=== PATIENT | female | born 1960 | race Hispanic/Latino ===

== ENCOUNTER 2022-07-21 11:03 | Observation (INO) | payer SELFPAY ==
[2022-07-21] VITALS (10 sets, daily range): BP systolic 119–143; BP diastolic 57–79; PULSE 55–70; RESP 14–18; TEMP 36.2–36.5; O2SAT 97–99; BMI 30.9
--- NOTE | 2022-07-21 | ECHO_ITS ---
Patient Info Name: Bela Perez Age: 62 years : 1960 Gender: Female Ht: 62 in Wt: 174 lbs BSA: 1.89 m2 HR: 88 bpm BP: 120 / 66 mmHg Heart Rhythm: Sinus Rhythm Technical Quality: Fair Exam Date: 07/21/2022 2:29 PM Exam Location: [facility] Pulmonary Exam Room: Patient Status: Outpatient Admit Date: 07/21/2022 Staff Ordering Physician: Alley Ag NP Criminal Investigative Agent: Junie Perry RDCS Attending Provider: Tim Macias MD Referring Physician: Kimberli GOLDSTEIN; Exam Type: CA echo doppler color flow Study Info Indications - chest pain Complete two-dimensional, color flow and Doppler transthoracic echocardiogram is performed. Summary 1. Complete two-dimensional, color flow and Doppler transthoracic echocardiogram is performed. 2. Normal left ventricular size, thickness and systolic function. 3. No regional wall motion abnormality. 4. Grade 1 diastolic noncompliance. 5. Trivial tricuspid regurgitation. Left Ventricle Left ventricular chamber dimension is normal. Left ventricular systolic function is normal, estimated at 60-65%. The left ventricular diastolic function is grade I diastolic dysfunction. Right Ventricle Right ventricular chamber dimension is normal. Left Atria Left atrial chamber dimension is normal. Right Atria Right atrial chamber dimension is normal. Aortic Valve The aortic valve is normal. Pulmonic Valve The pulmonic valve is normal. Mitral Valve The mitral valve has normal leaflets. Tricuspid Valve The tricuspid valve leaflets are normal. There is trace tricuspid valve regurgitation. Pericardium/Pleural The pericardium appears normal. Aorta The aortic root size at the sinus of Valsalva is normal. Left Ventricular Outflow Tract Name Value Normal LVOT 2D LVOT Diameter 2.0 cm LVOT Doppler LVOT Peak Gradient 5 mmHg LVOT Mean Gradient 3 mmHg LVOT VTI 26 cm LVOT VTI/AV VTI Ratio 0.8 LVOT Stroke Volume 77 ml LVOT CO 13.4 l/min LVOT CI 7.1 l/min/m2 Pulmonic Valve Name Value Normal PV Doppler PV Peak Gradient 24 mmHg Mitral Valve Name Value Normal MV Doppler MV Decel [place] 257 cm/s2 MV PHT 70 ms MV Area (PHT) 3.1 cm2 4.0-5.0 MV Diastolic Function
--- NOTE | ~2022-07-21 | XR_ITS ---
EXAMINATION: XR chest 1V portable 07/21/2022 12:32 INDICATION: Chest pain PROCEDURE: AP portable chest COMPARISON: No prior studies for comparison. FINDINGS: The lungs are clear. The cardiomediastinal silhouette is within normal limits. There are no pleural effusions. There is no pneumothorax suspected. IMPRESSION: 1: NO ACUTE CARDIOPULMONARY DISEASE. Reviewed, dictated and finalized at location A.
--- NOTE | 2022-07-21 11:15 | ECG_ITS ---
Measurements Intervals [place] Rate: 68 P: 44 MI: 162 QRS: 29 QRSD: 90 T: 60 QT: 386 QTc: 411 Interpretive Statements SINUS RHYTHM PREVIOUS ANTERIOR SEPTAL INFARCTION ABNORMAL ECG NO PRIOR ECG AVAILABLE FOR COMPARISON NO PREVIOUS ECG AVAILABLE FOR COMPARISON Electronically Signed On 07-21-2022 15:35:43 CDT by Juan Smith M.D.
--- NOTE | 2022-07-21 11:28 | ED.CHESTPAIN ---
HPI - Chest Pain General Chief Complaint: Chest Pain Stated Complaint: chest pain Time Seen by Provider: 07/21/22 11:26 History of Present Illness HPI narrative: Patient Korean-speaking, states last night around 5pm started having pain to chest radiating down left arm, never had symptoms like this in the past, with some nausea and dyspnea. Went to work and felt worse today so called EMS. Related Data Home Medications Medication Instructions Recorded Confirmed No Home Medications 07/21/22 07/21/22 Allergies Allergy/AdvReac Type Severity Reaction Status Date / Time No Known Allergies Allergy Verified 07/21/22 11:27 Review of Systems Review of Systems: CONST: No fever. HEENT: No sore throat C/V: chest pain RESP: difficulty breathing GI: Reports nausea : No dysuria. M/S: Left arm pain SKIN: No rash. NEURO: Headache PSYCH: [No depression] COUNTS INCLUDE 234 BEDS AT THE [facility] Past Medical History Medical History (Updated 07/21/22 @ 19:11 by Brandi Wright MD) Chest pain H/O tinnitus Pre-diabetes Surgical History Surgical History (Updated 07/21/22 @ 13:40 by Alley Ag NP) Hx of cholecystectomy Family History Family History (Updated 07/21/22 @ 13:45 by Alley Ag NP) Mother Diabetes mellitus Father Heart disease Social History Social History (Updated 07/21/22 @ 15:44 by Alley Ag NP) Social History: She is and has one child. She drinks occasional alcohol. 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 Code status full code Smoking status: Never smoker Alcohol intake: never Substance use: never Lack of Transportation: No Lack of Food: Never True Current Housing: I Have Housing Concerned About Future Housing: No Difficulty Paying Gas/Electric Bills: No Difficulty Paying for Meds: No Currently Unemployed: No Education: Don't Know Difficulty w/ Childcare or Family Care: No Spiritual care concerns: No Exam Narrative: EXAMINATION OF ORGAN SYSTEMS/BODY AREAS: Constitutional: Vital signs per nursing GENERAL:[No acute distress, non-toxic appearing.] HEAD: Normal with no signs of head trauma. EYES: EOMI, conjunctiva normal ENT: Hearing grossly intact LUNGS: Nonlabored breathing. HEART: [Regular rate and rhythm] ABD: [Soft], [nontender to palpation] EXT: Normal range of motion SKIN: [No rashes or lesions.] NEURO: [Alert and oriented x 3. No gross focal sensory or strength deficits.] PSYCH: Normal affect Course Vital Signs Vital signs: Vital Signs Temperature 97.6 F 07/21/22 11:05 Pulse Rate 70 07/21/22 11:05 Respiratory Rate 18 07/21/22 11:05 Blood Pressure 133/79 07/21/22 11:05 Pulse Oximetry 97 07/21/22 11:05 Oxygen Delivery Room Air 07/21/22 11:05 Temperature 97.1 F L 07/21/22 16:00 Pulse Rate 61 07/21/22 18:00 Respiratory Rate 14 07/21/22 16:00 Blood Pressure 119/57 L 07/21/22 16:00 Pulse Oximetry 98 07/21/22 16:00 Oxygen Delivery Room Air 07/21/22 15:00 MDM - Chest Pain MDM Narrative Medical decision making narrative: ED COURSE AND MEDICAL DECISION MAKIN-year-old female presenting with chest pain. EKG done in triage negative for acute ischemic changes. Cardiac workup is initiated. EKG: Performed in triage and interpreted by me. Normal sinus rhythm. Rate 68. Normal axis. [place] normal. QRS duration normal. QTc normal. Q waves and ST elevations in V1 to 3 concerning for possible ischemia. Discussed with interventional cardiology who did not feel this merited quality assurance/r&d lab technician emergently at this time, felt we could just trend troponins. CXR reviewed by myself, did not note any obvious consolidation, pneumothorax, mediastinal widening. Doubt dissection without any mediastinal widening. Labs within acceptable limits. I do not have any prior EKGs to compare her EKGs to, and given her EKG changes I do feel she should be admitted for cardiology work-up and patient agreeable with this plan.
[2022-07-21 11:31] LABS: Basophils Percent Auto 0.8 % (0.2-1.2); Eosinophils Absolute Auto 0.2 K/mm3 (0-0.3); Eosinophils Percent Auto 3.3 % (0-4.4); Hematocrit 34.7 % (37.0-47.0); Hemoglobin 11.1 g/dL (12.0-15.0); Immature Granulocyte Absolute 0.01 K/mm3 (0.00-0.031); Immature Granulocyte Percent A 0.2 % (0-0.5); Lymphocytes Absolute Auto 2.09 K/mm3 (0.9-3.2); Lymphocytes Percent Auto 40.4 % (18.3-44.2); Mean Corpuscular Hemoglobin 27.3 pg (26-34); Mean Corpuscular Volume 85.5 fl (80-100); Mean Platelet Volume 11.1 fl (7.4-10.4); Monocytes Absolute Auto 0.4 K/mm3 (0.1-0.6); Monocytes Percent Auto 8.5 % (2.6-8.5); Neutrophils Absolute Auto 2.4 K/mm3 (1.3-6.7); Neutrophils Percent Auto 46.8 % (45.5-73.1); Platelet Count Result 268 k/mm3 (150-375); Red Blood Count 4.06 M/mm3 (4.2-5.4); Red Cell Distribution Width 13.6 % (11.5-14.5); White Blood Count 5.2 K/mm3 (4.5-10.0)
--- NOTE | 2022-07-21 11:34 | PC.NURSE ---
11:26 Dr Smith contacted 11:[address] Wright to call [facility] 11:31 [facility] 11:31 Mack 11.34 [facility]
[2022-07-21] MEDS: SODIUM CHLORIDE 0.9% IV 1,000 ML 999 ML (11:39)
[2022-07-21] MEDS: TICAGRELOR 90 MG TABLET 180 MG PO (11:39)
[2022-07-21 11:40] LABS: Alanine Aminotransferase 37 U/L (6-35); Albumin Level 4.2 g/dL (3.5-5.1); Alkaline Phosphatase 85 U/L (38-126); Anion Gap 5 mmol/L (8-16); Aspartate Amino Transferase 32 U/L (14-36); Bilirubin,Total 0.5 mg/dL (0.2-1.3); Blood Urea Nitrogen 15 mg/dL (7-17); Calcium 8.4 mg/dL (8.4-10.2); Carbon Dioxide 28 mmol/L (22-30); Chloride 101 mmol/L (98-107); Estimated Glomerular Filt Rate > 60; Glucose 219 mg/dL (65-110); Lipase 126 U/L (23-300); Potassium 3.7 mmol/L (3.4-5.0); Sodium 134 mmol/L (137-145)
--- NOTE | 2022-07-21 11:42 | PC.NURSE ---
Dr. Go in room with [facility] team using stratus to communicate with patient.
[2022-07-21 11:45] LABS: INR 1.1
[2022-07-21 11:46] LABS: Partial Thromboplastin Time 33.3 SECONDS (22.3-36.8)
[2022-07-21 11:52] LABS: Troponin I < 0.012 ng/mL (0.000-0.034)
--- NOTE | 2022-07-21 13:38 | PM.IMHP ---
H&P: HPI History of Present Illness Date/Time: 07/21/22 13:39 Chief Complaint: Chest pain Narrative: This is a 62-year-old female patient who has no prior cardiac history. The only medical problem is that she was prediabetic. The patient is Maltese-speaking and her daughters at the bedside answering questions for her. The patient does speak very little Lithuanian. The patient has started having chest pain last night around 5:00 a.m. that was radiating to her left arm and never had any symptoms like this before. Today she was at work and had a severe headache as well as the left-sided chest pain that went into her neck and down her left arm. Patient was given IV Tylenol and she felt much better. Her H&H is 11.1 and 34.7. Sodium is 134. Glucose is 219 but the patient was not NPO. When I saw the patient her chest pain was relieved. Her headache was relieved. Her 1st troponin was nonreactive. Lipase is normal. Chest x-ray shows no acute cardiopulmonary disease. The patient is being admitted to observation status on the date of service of 07/21/2022. Review of Systems Review of Systems: All systems reviewed & are unremarkable except as noted in HPI and below Constitutional: Constitutional: Reports as per HPI and Reports no additional constitutional complaints Eyes: Eyes: Reports as per HPI and Reports no additional eye complaints ENT: Reports system reviewed and no additional complaints, except as documented and Reports Normal hearing present Cardiovascular: Cardiovascular: Reports no additional cardiovascular complaints Respiratory: Respiratory: Reports no additional respiratory complaints and Reports no additional respiratory complaints Gastrointestinal: Gastrointestinal: Reports as per HPI and Reports no additional gastrointestinal complaints Musculoskeletal: Musculoskeletal: Reports no additional musculoskeletal complaints Integumentary/Breasts: Skin/Breast: Reports system reviewed and no additional complaints, except as docu and Reports as per HPI Neurologic: Reports system reviewed and no additional complaints, except as documented, Reports as per HPI and Reports Normal hearing present Psychiatric: Psychiatric: Reports no additional psychiatric complaints and Reports as per HPI Endocrine: Endocrine: Reports no additional endocrine complaints Hematologic/Lymphatic: Hematologic/Lymphatic: Reports no additional hematologic/lymphatic complaints Allergic/Immunologic: Allergic/Immunologic: Reports no additional allergic/immunologic complaints [facility] Past Medical History Medical History (Updated 07/21/22 @ 15:47 by Alley Ag NP) Chest pain H/O tinnitus Pre-diabetes Surgical History Surgical History (Updated 07/21/22 @ 13:40 by Alley Ag NP) Hx of cholecystectomy Family History Family History (Updated 07/21/22 @ 13:45 by Alley Ag NP) Mother Diabetes mellitus Father Heart disease Social History Social History (Updated 07/21/22 @ 15:44 by Alley Ag NP) Social History: She is and has one child. She drinks occasional alcohol. 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 Code status full code Smoking status: Never smoker Alcohol intake: never Substance use: never Lack of Transportation: No Lack of Food: Never True Current Housing: I Have Housing Concerned About Future Housing: No Difficulty Paying Gas/Electric Bills: No Difficulty Paying for Meds: No Currently Unemployed: No Education: Don't Know Difficulty w/ Childcare or Family Care: No Spiritual care concerns: No Meds Home Medications and Allergies Home Medications Medication Instructions Recorded Confirmed Type No Home Medications 07/21/22 07/21/22 History Allergies Allergy/AdvReac Type Severity Reaction Status Date / Time No Known Allergies Allergy Verified 07/21/22 11:27 Vital Signs Vital Signs - 24 hr 07/21/22 11:05
--- NOTE | 2022-07-21 14:17 | ADMGEN ---
This patient, Bela Perez, was admitted to IMU Room 209-01. Patient/family oriented to hospital policies and general routines including ID bracelet, bed and alarms, visiting hours, pain management, procedures, bathroom and other care routines, personal items, smoking policy, room service/diet, and visiting hours. Information on how to activate the Rapid Response Team has been discussed. Patient/Family are encouraged to report perceived risks to care and to ask questions if they do not understand what they are told or what they should do.
[2022-07-21 15:49] LABS: Troponin I < 0.012 ng/mL (0.000-0.034)
[2022-07-21 16:24] LABS: Glucose Point of Care 125 mg/dl (65-105)
[2022-07-21 18:50] LABS: Troponin I < 0.012 ng/mL (0.000-0.034)
[2022-07-21 20:17] LABS: Glucose Point of Care 201 mg/dl (65-105)
[2022-07-21] MEDS: ACETAMINOPHEN 325 MG TABLET 650 MG PO (20:28)
[2022-07-22] VITALS (7 sets, daily range): BP systolic 104–137; BP diastolic 53–71; PULSE 58–73; RESP 16–20; TEMP 36.2–36.3; O2SAT 95–97
[2022-07-22 04:51] LABS: Basophils Absolute Auto 0.1 K/mm3 (0.0-0.1); Basophils Percent Auto 0.8 % (0.2-1.2); Eosinophils Absolute Auto 0.2 K/mm3 (0-0.3); Eosinophils Percent Auto 3.3 % (0-4.4); Hematocrit 42.3 % (37.0-47.0); Hemoglobin 13.5 g/dL (12.0-15.0); Immature Granulocyte Absolute 0.02 K/mm3 (0.00-0.031); Immature Granulocyte Percent A 0.3 % (0-0.5); Lymphocytes Absolute Auto 2.42 K/mm3 (0.9-3.2); Lymphocytes Percent Auto 38.4 % (18.3-44.2); Mean Corpuscular HGB Conc 31.9 g/dl (32-36); Mean Corpuscular Hemoglobin 27.5 pg (26-34); Mean Corpuscular Volume 86.2 fl (80-100); Mean Platelet Volume 11.3 fl (7.4-10.4); Monocytes Absolute Auto 0.5 K/mm3 (0.1-0.6); Monocytes Percent Auto 7.8 % (2.6-8.5); Neutrophils Absolute Auto 3.1 K/mm3 (1.3-6.7); Neutrophils Percent Auto 49.4 % (45.5-73.1); Platelet Count Result 325 k/mm3 (150-375); Red Blood Count 4.91 M/mm3 (4.2-5.4); Red Cell Distribution Width 13.8 % (11.5-14.5); White Blood Count 6.3 K/mm3 (4.5-10.0)
[2022-07-22 05:05] LABS: Hemoglobin A1C 8.7 % (<5.7)
[2022-07-22 05:36] LABS: Alanine Aminotransferase 43 U/L (6-35); Albumin Level 4.8 g/dL (3.5-5.1); Alkaline Phosphatase 86 U/L (38-126); Anion Gap 8 mmol/L (8-16); Aspartate Amino Transferase 52 U/L (14-36); Bilirubin,Total 1.2 mg/dL (0.2-1.3); Blood Urea Nitrogen 17 mg/dL (7-17); Carbon Dioxide 28 mmol/L (22-30); Chloride 102 mmol/L (98-107); Estimated CRCL calculation 96 ml/min; Estimated Glomerular Filt Rate > 60; Glucose 170 mg/dL (65-110); Magnesium 2.3 mg/dL (1.6-2.3); Potassium 5.2 mmol/L (3.4-5.0); Sodium 138 mmol/L (137-145)
[2022-07-22 08:14] LABS: Glucose Point of Care 168 mg/dl (65-105)
[2022-07-22] MEDS: ENOXAPARIN 40 MG/0.4 ML SYRINGE SUB-Q (09:15)
[2022-07-22] MEDS: ASPIRIN 81 MG ENTERIC TABLET PO (09:15)
[2022-07-22 10:02] LABS: Free T4 Free Thyroxine Reflex 0.98 ng/dL (0.78-2.19)
--- NOTE | 2022-07-22 10:57 | PM.IMPN ---
Progress Note: A&P Assessment and Plan (1) Chest pain: Code(s): R07.9 - Chest pain, unspecified Status: Acute Assessment and Plan: Echo was completed which showed grade 1 diastolic noncompliance otherwise normal with no regional wall motion abnormality Cardiology has been consulted Patient is pain-free at this time. Troponins are nonreactive x 3. On aspirin 81 mg daily Rule out ACS Await Cardiology evaluation Place on Pepcid for GI related chest pain Avoid spicy food discussed with the patient Okay to DC once cleared by cardiology from medical standpoint (2) Pre-diabetes: Code(s): R73.03 - Prediabetes Status: Acute Assessment and Plan: Accu-Cheks AC and HS with sliding scale insulin hypoglycemic protocol A1c came back at 8.7. Patient's blood sugar was noted to be 219 however the patient was not fasting. The patient stated that she was prediabetic at 1 time and had been on metformin but she is no longer taking any medications. Will need diabetes follow-up and management Diabetes Education Oral hypoglycemic agent diet physical activity would be advised with continued as an outpatient basis Will start metformin at discharge and have a follow-up with PCP Subjective Date/time seen: 07/22/22 10:57 Interval history: Presented with chest pain radiating to the left arm prior to admission. EMS was called EKG with ST elevations in V1 to V3 concerning for possible ischemia. Cardiology was contacted no stat STEMI call initiated per Cardiology. Chest x-ray negative. No prior EKG available. Admitted for further workup. Has underlying diabetes new diagnosis. Lipase was normal initial troponin was negative is associated severe headache chest pain has since resolved cardiology has been consulted. Serial troponin since admission has been negative. A1c came back at 8.7. Vital has been stable she did receive aspirin 325 mg and is continued on aspirin 81 mg daily. On Lovenox 40 mg daily. Echo was done which showed normal left ventricular size thickness and systolic function grade 1 diastolic noncompliance with no regional wall motion abnormality. TSH mildly elevated at 10. She is feeling much better. She is sore in her upper abdomen. Pain in the chest radiated to her left arm yesterday. Ruled out of ACS. Ambulating okay daughter at bedside who translated for me Review of Systems Review of Systems: All systems reviewed & are unremarkable except as noted in HPI and below Exam Narrative: GENERAL: The patient is well developed, not in acute distress HEENT: Nonicteric sclerae, PERRLA, EOMI. Oropharynx clear. Moist mucous membranes. Conjunctivae appear well perfused. CHEST: Chest wall is nontender. HEART: Regular rate and rhythm without murmur, rubs, or gallops LUNGS: Clear to auscultation bilaterally. no respiratory distress ABDOMEN: Soft, positive bowel sounds, mild epigastric tenderness, no organomegaly. SKIN: No rash, no excessive bruising, petechiae, or purpura. NEUROLOGIC: Cranial nerves II-XII intact, alert and oriented x 3, no gross motor deficits EXTREMITIES: no edema, cyanosis or clubbing Objective Data Vital Signs Vital Signs: Vital Signs - 24 hr 07/21/22 11:05 07/21/22 13:03 07/21/22 14:07 Temperature 97.6 F Pulse Rate 70 63 64 Respiratory Rate 18 16 18 Blood Pressure 133/79 120/66 120/60 Pulse Oximetry 97 99 99 Oxygen Delivery Room Air 07/21/22 14:20 07/21/22 16:00 07/21/22 16:00 Temperature 97.5 F L 97.1 F L Pulse Rate 55 L 62 57 L Respiratory Rate 16 14 Blood Pressure 129/72 119/57 L Pulse Oximetry 99 98 Oxygen Delivery 07/21/22 15:00 07/21/22 18:00 07/21/22 19:51 Temperature 97.7 F Pulse Rate 61 63 Respiratory Rate 16 Blood Pressure 143/62 H Pulse Oximetry 98 Oxygen Delivery Room Air 07/21/22 23:56 07/21/22 20:00 07/21/22 20:00 Temperature 97.5 F L Pulse Rate 63 70 Respiratory Rate 16 Blood Pressure 125/60 Pulse Oximetry 97
[2022-07-22 12:18] LABS: Glucose Point of Care 204 mg/dl (65-105)
--- NOTE | 2022-07-22 13:06 | PM.DS ---
DS: Admitting Diagnosis Discharge Date 07/22/2022 Admitting Diagnosis Chest pain DS: Discharge Diagnosis Discharge Diagnosis (1) Chest pain: Code(s): R07.9 - Chest pain, unspecified Status: Acute (2) Pre-diabetes: Code(s): R73.03 - Prediabetes Status: Acute DS: Summary Hospital Course Hospital Course: # chest pain: Atypical. Initial EKG showed subtle ST elevation on V1 V2 V3. ED had called stat STEMI and Cardiology evaluated in the ED and stat STEMI call was canceled. She was given aspirin 325 mg x 1. Serial troponin was performed and was admitted for observation. Troponin x3 came back negative. She also had an echo done which showed grade 1 diastolic noncompliance otherwise normal with no regional wall motion abnormality She is placed on aspirin 81 mg daily. She ruled out of acute coronary syndrome Upon discussion with her do appeared GI related pain. Added Pepcid discussed diet with avoiding spicy food with the patient. # diabetes type 2: See had been diagnosed with prediabetes in the past. Her blood sugar was elevated during the hospital workup. Her A1c came back at 8.7. Was provided during the hospital stay put she will also need to follow up with PCP with regard to diabetes management. Will start with metformin at discharge which he has taken in the past and tolerated well. Further adjustment of oral hypoglycemic agent and monitoring of her diabetes as an outpatient basis. # hypothyroidism TSH came back at 10. Free T4 normal. This will need to be monitored and recheck as an outpatient basis and start thyroid replacement therapy he needed # mildly elevated liver enzymes: Likely due to underlying diabetes/obesity. No history of alcohol use. Reiterated the fact that she need to follow up with PCP Time Spent with Patient Time attestation: Total time spent providing and/or coordinating discharge services: 35 minutes Exam Narrative: GENERAL: The patient is well developed, not in acute distress HEENT: Nonicteric sclerae, PERRLA, EOMI. Oropharynx clear. Moist mucous membranes. Conjunctivae appear well perfused. CHEST: Chest wall is nontender. HEART: Regular rate and rhythm without murmur, rubs, or gallops LUNGS: Clear to auscultation bilaterally. no respiratory distress ABDOMEN: Soft, positive bowel sounds, mild epigastric tenderness, no organomegaly. SKIN: No rash, no excessive bruising, petechiae, or purpura. NEUROLOGIC: Cranial nerves II-XII intact, alert and oriented x 3, no gross motor deficits EXTREMITIES: no edema, cyanosis or clubbing DS: Data Data Completed and Pending Completed studies during hospitalization: Exam Type: ? ? CA echo doppler color flow Study Info Indications ?? ? - chest pain Complete two-dimensional, color flow and Doppler transthoracic echocardiogram is performed. Account #: ? ? [id number] Summary ? 1. Complete two-dimensional, color flow and Doppler transthoracic echocardiogram is performed. ? 2. Normal left ventricular size, thickness and systolic function. ? 3. No regional wall motion abnormality. ? 4. Grade 1 diastolic noncompliance. ? 5. Trivial tricuspid regurgitation. Left Ventricle ? Left ventricular chamber dimension is normal. ? Left ventricular systolic function is normal, estimated at 60-65%. ? The left ventricular diastolic function is grade I diastolic dysfunction. Right Ventricle ? Right ventricular chamber dimension is normal. Left Atria ? Left atrial chamber dimension is normal. Right Atria ? Right atrial chamber dimension is normal. Aortic Valve ? The aortic valve is normal. Pulmonic Valve ? The pulmonic valve is normal. Mitral Valve ? The mitral valve has normal leaflets. Tricuspid Valve ? The tricuspid valve leaflets are normal. ? There is trace tricuspid valve regurgitation. Pericardium/Pleural ? The pericardium appears normal. Aorta ? The aortic root size at the sinus of Valsalva is normal.
[2022-07-22] MEDS: FAMOTIDINE 20 MG TABLET PO (14:18)
[2022-07-22 15:12] LABS: Total Triiodothyronine (T3) 1.37 NG/ML (0.97-1.69)
== END 2022-07-22 12:17 | disposition home or self-care (01) ==
LOC: ANHED 11:53 → ANHIMU 14:26
PROVIDERS: Nurse Practitioner; Admitting Provider Internal Medicine; Emergency Provider Emergency Medicine; Visit Provider Internal Medicine
DX: R07.9 Chest pain, unspecified (principal); M79.602 Pain in left arm; R73.03 Prediabetes; R51.9 Headache, unspecified; H93.19 Tinnitus, unspecified ear; R73.9 Hyperglycemia, unspecified; I11.9 Hypertensive heart disease without heart failure; R94.31 Abnormal electrocardiogram [ECG] [EKG]; F10.90 Alcohol use, unspecified, uncomplicated; Z90.49 Acquired absence of other specified parts of digestive tract; Z83.3 Family history of diabetes mellitus; Z82.49 Family history of ischemic heart disease and other diseases of the circulatory system; D64.9 Anemia, unspecified
CPT/HCPCS: 36415; 71045; 80053; 82948; 83036; 83605; 83690; 83735; 84439; 84443; 84480; 84484; 85025; 85610; 85730; 93005; 93306; 96361; 96365; 99285; A9270; G0378; J0131; J1650; J7030